=== PATIENT | male | born 1990 | race Caucasian/White ===

== ENCOUNTER 2024-07-17 17:02 | Emergency (ER) | payer MEDICARE, SELFPAY ==
[2024-07-17 17:11] VITALS: BP 119/97
--- NOTE | 2024-07-17 17:43 | ED.GENMED ---
History of Present Illness
General
Chief Complaint: Heart Rate Problem
Source: patient
Exam Limitations: none
Time Seen by Provider: 07/17/24 17:08
Nursing documentation reviewed up to this point in time: agreed with
History of Present Illness
History of Present Illness:
Patient presents to ED from [facility], secondary to concern for withdrawal from recent fentanyl use, prior to entering detention. Patient reports last use of fentanyl approxi-1 week ago. Patient denies fever or chills.
Denies chest pain or shortness of breath. Denies dizziness. Patient states that he has had multiple vomiting episodes, similar to what he has experienced in the past. Patient also states that he was initially given Subutex upon entering, but has
not received any Subutex for the past 2 days and does not know why. Denies fever or chills. Denies headache. Denies dizziness.
Review of Systems
Review of Systems
Allergies reviewed?: Yes
All Other Systems: ROS reviewed and negative except as documented in HPI and ROS
Constitutional: Reports no symptoms; Denies fever
EENT: Reports no symptoms
Respiratory: Reports no symptoms; Denies trouble breathing
Cardiac: Reports no symptoms
ABD/GI: Reports nausea and vomiting; Denies diarrhea
: Reports no symptoms
Musculoskeletal: Reports no symptoms
Skin: Reports no symptoms
Neurological: Reports no symptoms
Phy Exam
Physical Exam
Physical Exam:
Physical Exam
General: no apparent distress, not acutely ill. afebrile
Head: nc/at. eomi
Neck: supple. no meningeal signs.
Heart: tachycardic, no murmur. equal radial pulses.
Lungs: no acute respiratory distress. clear bilaterally
Abdomen: normal bowel sounds. not tender.
Neuro: alert and oriented x 3. no focal neurological deficits
Skin: no rash
Psychiatric: well kept. interactive and cooperative
Extremities: no edema. no calf tenderness.
Sepsis
Sepsis Screening
Sepsis Assessment: Sepsis Ruled Out
Sepsis Screen
Sepsis Screen: Sepsis Ruled Out
Date: 07/17/24
Time: 20:12
Course
Orders/Labs/Results
Orders:
Orders
07/17/24 17:36
Electrocardiogram (*1) Urgent
Reason for Study: Bradycardia / Tachycardia
EKG- Treatment ONCE
Buprenorphine [Subutex] 4 mg SL NOW STA
07/17/24 17:37
0.9% Sodium Chloride 1000 ml [Nss] 1,000 ml IV BOLUS
07/17/24 18:06
Basic Metabolic Panel Urgent
Complete Blood Count/No Diff Urgent
Magnesium Urgent
Abnormal Lab Results
07/17/24
18:06
BUN 34 H mg/dl
(9-20)
Glucose 123 H mg/dl
(70-99)
07/17/24 18:06
07/17/24 18:06
Vital Signs
Initial and Last Documented VS:
Initial Vital Signs
Pulse Resp BP Pulse Ox
133 18 119/97 98
07/17/24 17:11 07/17/24 17:11 07/17/24 17:11 07/17/24 17:11
Last Documented Vital Signs
Temp Pulse Resp BP Pulse Ox
98.8 F 97 20 113/82 98
07/17/24 18:08 07/17/24 19:08 07/17/24 19:08 07/17/24 19:08 07/17/24 17:11
MDM/Problems Addressed
MDM/Problems Addressed:
History and exam consistent with likely presenting tachycardia, secondary to withdrawal from opioids. Patient given IV fluids and Subutex, with significant improvement symptoms. Vital signs normalized. Patient reports improvement. As such,
patient will be discharged back to [facility] for continual care, including recommendation to continue Subutex.
*EKG
Interpreted by ED Provider?: Yes
EKG Intrepretation Date: 07/17/24
Heart Rate: 117
Rate: tachycardiac
Rhythm: sinus
[place]: normal axis
QRS Pattern: normal QRS
*Critical Care Note
Total Time (30-74mins, 75-104mins- exclusive of procedures): Not Applicable
ED Attending Note
-
Portions of this chart may have been created with voice recognition software.� Occasional wrong word or��sound alike� substitutions may have occurred due to the inherent limitations of voice recognition software.
Discharge Plan
Departure
Patient Disposition: [facility]
Date of Disposition: 07/17/24
Time of Disposition: 19:12
Patient with high blood pressure during this ER visit?: Yes
Condition: Fair
Discharge Problem:
Dehydration, Opioid withdrawal
Instructions: Substance use disorder, Dehydration in adults - ED discharge instructions
Referrals:
NONE,* [Family Provider] -
Activity Restrictions/Additional Instructions:
As discussed, you are being discharged back to [facility] for continual care. Recommend continuation of Subutex treatment upon discharge.
Interventions
Interventions:
*Risk Screen - Suicide Last Done: 07/17/24 17:11
*General Assessment Last Done: 07/17/24 17:11
*Neglect/Abuse Screening Last Done: 07/17/24 17:11
*ED COVID-19 Vaccine History Last Done: 07/17/24 17:57
*Nursing Disposition Last Done: 07/17/24 19:21
Discharge Date and Time
Discharge Date/Time: 07/17/24 19:22
Print Language: GERMAN
[2024-07-17 18:01] VITALS: BMI 19.1
[2024-07-17] MEDS: NSS 1000 IV (18:06)
[2024-07-17 18:14] LABS: Hematocrit 45.9 % (39.0-52.0); Hemoglobin 16.2 g/dL (13.0-18.0); Mean Corp Hgb Conc. 35.3 g/dL (33.0-37.0); Mean Corpuscular Hgb 28.9 pg (27.0-31.0); Platelet Count 384 10^3/uL (130-400); Red Cell Dist. Width 12.5 % (11.5-14.5)
[2024-07-17 18:28] LABS: Blood Urea Nitrogen 34 mg/dl (9-20); Calcium 9.8 mg/dl (8.4-10.2); Carbon Dioxide 27 mmol/L (22-30); Chloride 98 mmol/L (98-107); Estimated Creatinine Clearance 109 ml/min; Glucose 123 mg/dl (70-99); Magnesium 2.3 mg/dl (1.6-2.3); Potassium 3.8 mmol/L (3.5-5.1); Sodium 135 mmol/L (135-145); eGFR > 60.00
[2024-07-17] MEDS: SUBUTEX 4 MG SL (18:30)
[2024-07-17 19:08] VITALS: BP 113/82
== END 2024-07-17 19:22 ==
LOC: EMR 17:02
PROVIDERS: EMERGENCY PHYSICIAN Emergency Medicine
DX: E86.0 Dehydration (principal); F11.23 Opioid dependence with withdrawal
CPT/HCPCS: 99284; 96360; 80048; 83735; 85027; 93005